=== PATIENT | female | born 1945 | race Caucasian/White ===

== ENCOUNTER 2020-04-16 12:45 | Emergency (ER) | payer MEDICARE, OTHER ==
[~2020-04-16] VITALS: Ht 165.1 cm; Wt 68.2 kg
[2020-04-16 12:50] VITALS: BP 158/90
== END 2020-04-16 14:20 | disposition home or self-care (01) ==
LOC: EMS 12:46
DX: Z03.818 Encounter for observation for suspected exposure to other biological agents ruled out (principal); J02.9 Acute pharyngitis, unspecified; R53.81 Other malaise
CPT/HCPCS: 99283; U0003